=== PATIENT | male | born 1925 | race Caucasian/White ===

== ENCOUNTER 2016-03-28 09:59 | Emergency (ER) | payer MEDICARE, OTHER ==
[2016-03-28 10:17] LABS: #Lymphocytes 8.9 thou/uL (1.20-3.40); #Neutrophils 4.5 thou/uL (1.40-6.50); %Basophils 1.2 % (0.0-1.0); %Eosinophils 0.2 % (0.0-10.0); %Lymphocytes 63.1 % (21.0-51.0); %Monocytes 3.4 % (0.0-10.0); %Neutrophils 32.1 % (42.0-75.0); Hemoglobin 11.2 g/dL (14.0-18.0); Mean Corpuscular HGB CONC 32.7 g/dL (32.0-36.0); Mean Platelet Volume 10.3 fL (7.4-10.4); Platelet Count 97 thou/uL (130-400); RBC Distribution Width 13.7 % (11.5-14.5); Red Blood Cell (RBC) Count 3.38 mill/uL (4.70-6.10)
[2016-03-28 10:18] LABS: #Basophils 0.2 thou/uL (0.0-0.2); #Monocytes 0.5 thou/uL (0.11-0.59)
[2016-03-28 10:19] LABS: PLT Morphology Comment Appears Decreased
[2016-03-28 10:20] LABS: INR-International Normal Ratio 2.4; PTT 34.9 SEC (22.9-36.1); Prothrombin Time 26.1 SEC (12.0-14.7)
[2016-03-28 10:32] LABS: ALT (SGPT) 11 U/L (0-55); AST (SGOT) 17 U/L (5-34); Albumin 3.6 g/dL (3.4-4.8); Alkaline Phosphatase 87 U/L (40-150); Anion Gap 20 mmol/L (10-20); BUN (Urea Nitrogen) 19 mg/dL (8.4-25.7); Bilirubin, Total 0.9 mg/dL (0.2-1.2); Calc. Creatinine Clearance 0 mL/min (70-130); Calcium 9.1 mg/dL (7.8-10.44); Carbon Dioxide 16 mmol/L (23-31); Chloride 110 mmol/L (98-107); Estimated GFR-MDRD 49; Globulin 2.7 g/dL (2.4-3.5); Glucose 148 mg/dL (83-110); Potassium 4.4 mmol/L (3.5-5.1); Protein, Total 6.3 g/dL (5.8-8.1); Sodium 142 mmol/L (136-145)
[2016-03-28 10:34] LABS: CKMB 1.7 ng/mL (0-6.6)
--- NOTE | 2016-03-28 11:14 | CT ---
NONCONTRAST CT OF THE BRAIN: INDICATION: Altered mental status with possible stroke. COMPARISON: Prior exam dated 12/29/15. FINDINGS: No acute infarct, hemorrhage, or hydrocephalus is present. There is stable encephalomalacia involvi ng the posterior right insular cortex as well as the right temporal lobe. There is diffuse cerebral and cerebellar atrophy. There is mild chronic small-vessel white matter ischemic change. Septum p ellucidum and third ventricle are midline. There is prominent mucosal thickening within the right m axillary sinus which is similar. Mastoid air cells are clear. The skull is intact. IMPRESSION: 1. No acute intracranial abnormality. 2. Stable chronic ischemic change. 3. Stable paranasal sinus disease. POS: EDMUND
[2016-03-28] MEDS ORDERED: Aspirin 300 MG Suppository ONE (11:30)
[2016-03-28 11:34] LABS: Bilirubin Negative (Negative); Blood, Urine Moderate (Negative); Clarity Clear (Clear); Glucose, Urine (Dipstick) Negative (Negative); Leukocyte Negative (Negative); Nitrite Negative (Negative); Protein, Urine (Dipstick) 100 mg/dL (Neg-Trace); Specific Gravity, Urine 1.025 (1.005-1.030); pH, Urine 5.5 (5.0-9.0)
[2016-03-28 11:49] LABS: WBC/HPF 0-3 HPF (0-3)
[2016-03-28 11:50] LABS: Bacteria/HPF 1+ HPF (None Seen)
[2016-03-28 11:59] LABS: Lactic Acid 2.2 mmol/L (0.5-2.2)
[2016-03-28] MEDS ORDERED: cefTRIAXone\\ROCEPHIN 1 GM VIAL ONE (12:02)
[2016-03-28] MEDS ORDERED: Sodium Chloride 0.9% 100 ML ONE (12:02)
--- NOTE | 2016-03-28 12:06 | RAD ---
UPRIGHT PORTABLE CHEST 1 VIEW: HISTORY: An 89-year-old male with leukocytosis. COMPARISON: 12/29/15. FINDINGS: Cardiomegaly with left ICD. Postop midline sternotomy. Bilateral vascular congestion with minimal interstitial changes progressive from prior study. IMPRESSION: Cardiomegaly with bilateral vascular congestion and mild interstitial edema changes showing some wor sening when compared to the 12/29/15 study. No confluent pneumonia or other overt new process. POS: LOUISA
--- NOTE | 2016-03-28 13:02 | ERRECORD ---
[facility] EMERGENCY RECORD HPI NEUROLOGICAL DEFICIT (10:07 SHAN) CHIEF COMPLAINT: Patient presents for evaluation of Adult dementia patient, dnr, from prison. They stated to ems that they thought he had had a seizure, then was found breathing but not responsive; on arrival here can move all extremeties. Appears confused but by hx this is chronic. HISTORIAN: Additional history obtained from EMS. LOCATION: No localizing symptoms. SEVERITY: Maximum severity of symptoms moderate, Currently symptoms are mild. TIME COURSE: Symptoms are improving. ROS (10:11 SHAN) CONSTITUTIONAL: Negative constitutional review of systems, Historian denies chills, denies fever. EYES: Negative eye review of systems. ENT: Negative ears, nose, throat review of systems. CARDIOVASCULAR: Negative cardiovascular review of systems, Historian denies chest pain, denies palpitations. RESPIRATORY: Negative respiratory review of systems, Historian denies cough, denies shortness of breath. GI: Negative gastrointestinal review of systems, Historian denies abdominal pain, denies constipation, denies diarrhea. MUSCULOSKELETAL: Negative musculoskeletal review of systems. SKIN: Negative skin review of systems. NEUROLOGIC: Historian reports confusion, dementia obvious; but appearance chronic. ENDOCRINE: Negative endocrine review of systems. HEMO/LYMPHATIC: Normal hematologic/lymphatic system review. PSYCHIATRIC: Negative psychiatric review of systems. NOTES: All other ROS is negative except as listed in HPI. PAST MEDICAL HISTORY MEDICAL HISTORY: Flu vaccine not up to date, Tetanus not up to date, Pneumococcal vaccine not up to date, Past medical history includes neurological disease, dementia, Notes: HTN CHF, CHRONIC RENAL INSUFFICIENCY, PACEMAKER WITH AICD, HX AFIB, DEMENTIA,. ALTERED MENTAL STATUS, 03/28/16. (10:50 ER) MALE SURGICAL HISTORY: UNKOWN. (10:50 ER) SOCIAL HISTORY: Social History includes per ems, Patient denies alcohol use, Patient denies drug use, Patient has no smoking history.03/28/16. (10:50 ER) FAMILY HISTORY: Unknown family histroy. (10:50 ER) NOTES: I have reviewed and agree with the PMH/PSxH/FamHx/SocHx obtained by the nurse. (10:11 SHAN) KNOWN ALLERGIES Cipro tablet &a-1R&a+25V*p+0X*b2533A*c202B*c15G*c2P*p-0X&a-25V&a+1R Name: Cj Landry : 1925 M89 MedRec: [id number] AcctNum: [id number] Prepared: SatMar 28, 2016 14:31 by Interface Page 1 of 5 pMD [facility] EMERGENCY RECORD CURRENT MEDICATIONS Lasix: TABLET : Strength - 40 mg : ORAL Patient Dose: 1 tab(s) Oral once a day. (10:57 ER) famotidine: TABLET : Strength - 20 mg : ORAL Patient Dose: 1 tab(s) Oral once a day. (10:57 ER) tamsulosin: CAPSULE, EXT RELEASE 24 HR : Strength - 0.4 mg : ORAL Patient Dose: 1 tab(s) Oral once a day. (10:57 ER) aspirin: TABLET, CHEWABLE : Strength - 81 mg : ORAL Patient Dose: 1 tab(s) Oral once a day. (10:57 ER) carvedilol: TABLET : Strength - 6.25 mg : ORAL Patient Dose: 1 tab(s) Oral 2 times a day (before meals). (10:57 ER) lisinopril: TABLET : Strength - 2.5 mg : ORAL Patient Dose: 1 tab(s) Oral once a day. (10:57 ER) Calcium Citrate + D: TABLET : Strength - 315 mg-200 unit : ORAL Patient Dose: 1 tab(s) Oral 2 times a day. (10:57 ER) warfarin: TABLET : Strength - 5 mg : ORAL Patient Dose: 1 tab(s) Oral once a day. (10:57 ER) potassium chloride: TABLET, EXTENDED RELEASE : Strength - 20 mEq : ORAL Patient Dose: 1 cap(s) Oral once a day. (10:57 ER) Myrbetriq: TABLET, EXTENDED RELEASE 24 HR : Strength - 50 mg : ORAL Patient Dose: 1 tab(s) Oral once a day. (10:57 ER) Proscar: TABLET : Strength - 5 mg : ORAL Patient Dose: once a day. (10:57 ER) digoxin: TABLET : Strength - 125 mcg : ORAL Patient Dose: once a day. (10:57 ER) DuoNeb: AMPUL FOR NEBULIZATION (ML) : Strength - 0.5 mg-3 mg (2.5 mg base)/3 mL : INHALATION Patient Dose: every 6 hours PRN. (10:57 ER) Myrbetriq: TABLET, EXTENDED RELEASE 24 HR : Strength - 25 mg : ORAL Patient Dose: 1 tab(s) Oral once a day. (11:05 ER) PriLOSEC: CAPSULE,DELAYED RELEASE (ENTERIC COATED) : Strength - 40 mg : ORAL Patient Dose: 1 tab(s) Oral once a day. (11:06 ER) VITAL SIGNS &a-1R&a+25V*p+0X*s1884E*c202B*c15G*c2P*p-0X&a-25V&a+1R Name: Cj Landry : 1925 M89 MedRec: [id number] AcctNum: [id number] Prepared: SatMar 28, 2016 14:31 by Interface Page 2 of 5 pMD [facility] EMERGENCY RECORD VITAL SIGNS: BP: 159/79, Time: 03/28/2016 10:01. (10:01 AWAT) BP: 159/79, Pulse: 80, Resp: 20, Pain: 0, O2 sat: 91 on Room Air, Time: 03/28/2016 10:01. (10:01 ER) BP: 152/73, Pulse: 80, Resp: 20, Pain: 0, O2 sat: 91 on Room Air, Time: 03/28/2016 10:15. (10:15 ER) BP: 142/72, Pulse: 80, Resp: 20, Pain: 0, O2 sat: 91 on Room Air, Time: 03/28/2016 12:00. (12:00 ER) BP: 142/74, Pulse: 79, Resp: 20, Pain: 0, O2 sat: 89 on Room Air, Time: 03/28/2016 10:30. (10:30 ER) BP: 143/75, Pulse: 81, Resp: 20, Pain: 0, O2 sat: 91 on Room Air, Time: 03/28/2016 11:00. (11:00 ER) Temp: 97.5 (Tympanic), Time: 03/28/2016 10:05. (10:05 ER) BP: 150/78, Pulse: 79, Resp: 20, Pain: 0, O2 sat: 93 on Room Air, Time: 03/28/2016 11:30. (11:30 ER) BP: 153/75, Pulse: 79, Resp: 20, Pain: 0, O2 sat: 91 on Room Air, Time: 03/28/2016 12:15. (12:15 ER) BP: 145/76, Pulse: 81, Resp: 18, Pain: 0, O2 sat: 91 on Room Air, Time: 03/28/2016 13:00. (13:00 ER) BP: 154/81, Pulse: 85, Resp: 18, Pain: 0, O2 sat: 91 on Room Air, Time: 03/28/2016 12:30. (12:30 ER) BP: 144/73, Pulse: 80, Resp: 18, Temp: 97.1 (Tympanic), Pain: 0, O2 sat: 94 on 2L Oxygen, Time: 03/28/2016 13:45. (13:45 ER) BP: 150/74, Pulse: 84, Resp: 18, Pain: 0, O2 sat: 94 on 2L Oxygen, Time: 03/28/2016 13:30. (13:30 ER) PHYSICAL EXAM (10:11 SHAN) CONSTITUTIONAL: Vital signs reviewed, Patient appears non toxic, Patient alert and oriented to person, place and time, Pt is in no apparent distress. HEAD: Head exam included findings of head atraumatic, normocephalic. EYES: Eye exam included findings of eyelids normal to inspection, Pupils equally round and reactive to light, Extraocular muscles intact. ENT: ENT exam normal, Nose exam normal, no nasal deformity, no bleeding from nares, Pharynx exam normal, Mouth exam normal, mucous membranes moist. NECK: Neck exam included findings of normal range of motion, Trachea midline. RESPIRATORY CHEST: Respiratory and chest exam normal, Breath sounds clear, No wheezing, No rales, Chest exam included findings of chest movement symmetrical, Chest expansion equal. CARDIOVASCULAR: Cardiovascular assessment normal, Cardiovascular exam included findings of heart rate regular rate and rhythm, Heart sounds normal, has pacemaker, defibrillator. ABDOMEN MALE: Abdominal exam included findings of abdomen nontender, Bowel sounds normal, no mass, no pulsatile masses, no peritoneal signs, no rigidity, no guarding, no rebound. BACK: Back exam included findings of normal inspection, range of motion normal, no costovertebral angle tenderness. &a-1R&a+25V*p+0X*f4088M*c202B*c15G*c2P*p-0X&a-25V&a+1R Name: Cj Landry : 1925 M89 MedRec: [id number] AcctNum: [id number] Prepared: SatMar 28, 2016 14:31 by Interface Page 3 of 5 pMD [facility] EMERGENCY RECORD UPPER EXTREMITY: Upper extremity exam included findings of inspection normal, Range of motion normal. LOWER EXTREMITY: Lower extremity exam included findings of inspection normal, Range of motion normal. NEURO: Confused, chronic by history. no focal motor deficits, no focal sensory deficits. SKIN: Skin exam included findings of skin warm, dry, and normal in color, left face is reddened; similar to pressure effect. actinics. LYMPHATIC: Lymphatic exam normal. PSYCHIATRIC: Psychiatric exam included findings of patient oriented to person place and time, Normal affect. EKG INTERPRETATION (10:53 SHAN) 12 LEAD EKG INTERPRETATION: 12 lead EKG interpreted by Emergency Department Physician at time of study, rate 80; paced rhythm; no obvious acute event. MEDICATION ADMINISTRATION SUMMARY Drug Name: Rocephin intravenous, Dose Ordered: 1 g, Route: IV Push, Status: Given, Time: 12:10 03/28/2016, Drug Name: *aspirin 300 mg rectal supp., Dose Ordered: * , Route: Rectal, Status: Given, Time: 11:36 03/28/2016, *Additional information available in notes, Detailed record available in Medication Service section. DOCTOR NOTES TEXT: snf note of possible seizure; found unresponsive; hx given was that can normally walk and responsive, but with alzheimers and is dnr. Is anticoagulated. Troponin I positive; but unclear of source. Will add aspirin (inr up already). (10:41 SHAN) Later prison data obtained by rn; patient had been dressed earlier in day; was found asleep (clothed) by rn. Normally would talk, but not today. Daughter is listed as decision maker. Last normal time is unknown. 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 (11:06 SHAN) Daughter is giving permission for transfer, positive troponin and can not rule out onset unknown possible non hemorrhagic cva in patient with prior valve replacement. (11:43 SHAN) Chest x-ray with cardiomegaly and some vascular congestion; only slightly worse than prior. (11:55 SHAN) Discussed each anomaly, Dr. Quinn at [facility] accepting. (12:52 SHAN) PATIENT PLAN: The patient requires a transfer and will be transferred. (11:43 SHAN) DATA REVIEWED: Lab data reviewed, Xray data reviewed, Reviewed EKG. (11:06 SHAN) Lab data reviewed, Xray data reviewed, Reviewed EKG. 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 PRESCRIPTION No recorded prescriptions DISPOSITION PATIENT: Disposition Type: Transfer, Disposition: Transfer to [facility]. (11:50 SHAN) Disposition: [facility]. (13:02 AWAT) Patient left the department. (14:05 ER) Granados: AWAT=LYRIC Antonio, Marcelo ER=Marie Chew=MD Fara, Jamir &a-1R&a+25V*p+0X*h0805M*c202B*c15G*c2P*p-0X&a-25V&a+1R Name: Garo Landrykacey Warner : 1925 M89 MedRec: [id number] AcctNum: [id number] Prepared: SatMar 28, 2016 14:31 by Interface Page 5 of 5 pMD [facility]
--- NOTE | 2016-03-28 13:08 | PICIS ---
[facility] EMERGENCY RECORD COMMUNICATIONS COMMUNICATIONS: Notes: TRANSFER PROCESS STARTED NOW. PT'S DAUGHTER GAVE VERBAL CONSENT TO TRANSFER HER DAD TO THE NEAREST ACCEPTING [facility] F[facility]. [facility] CALLED & NOTIFIED OF NEED TO TRANSFER... (11:46 AWAT) Notes: CALLBACK RECIEVED FROM [place] WITH [facility]. HE GAVE AD APPROVAL OF ROBERT AUGUST AT [address] [address] IN [place]. [address] [facility] ACCEPTED PT. PT WILL BE A DIRECT ADMIT TO ROOM 419. (13:11 AWAT) TRIAGE (10:01 AWAT) TRIAGE NOTES: [place] from [place] (10:01 AWAT) PATIENT: NAME: Cj Landry, AGE: 89, GENDER: male, : [id number], TIME OF GREET: SatMar 28, 2016 10:00, PREFERRED LANGUAGE: Setswana, ETHNICITY: Not or , ECODE BILLING MAP: [facility], SSN: [id number], Zip Code: [address], PHONE: , , , PERSON ID: [id number]. (10:01 AWAT) KG WEIGHT: 79.4 (est.). (11:30 ER) COMPLAINT: POSS STROKE. (10:01 AWAT) ADMISSION: URGENCY: 3 Urgent, ADMISSION SOURCE: Half-Way, TRANSPORT: AMBULANCE - [facility], BED: ED -01. (10:01 AWAT) IMMUNIZATIONS: Notes: UNKOWN ON IMMUNIZATIONS. (10:50 ER) SIRS SCORING: Heart Rate 55-109 (0), Temp range 96.8-101.1 (0), respiratory rate 12-24 (0), Mental status altered: yes (1), Total SIRS Score 1. (10:50 ER) TRIAGE SCREENING: Patient denies suicidal ideation, Patient denies presence of domestic violence. (10:50 ER) PROVIDERS: TRIAGE NURSE: Marcelo Antonio RN. (10:01 AWAT) VITAL SIGNS: BP 159/79, Time 03/28/2016 10:01. (10:01 AWAT) ACTIVATE PROTOCOL: Stroke protocol activated from Ambulance call. (10:50 ER) KNOWN ALLERGIES Cipro tablet CURRENT MEDICATIONS Lasix: TABLET : Strength - 40 mg : ORAL Patient Dose: 1 tab(s) Oral once a day. (10:57 ER) famotidine: TABLET : Strength - 20 mg : ORAL Patient Dose: 1 tab(s) Oral once a day. (10:57 ER) tamsulosin: CAPSULE, EXT RELEASE 24 HR : Strength - 0.4 mg : ORAL Patient Dose: 1 tab(s) Oral once a day. (10:57 ER) aspirin: TABLET, CHEWABLE : Strength - 81 mg : ORAL Patient Dose: 1 tab(s) Oral once a day. (10:57 ER) carvedilol: &a-1R&a+25V*p+0X*b8079C*c202B*c15G*c2P*p-0X&a-25V&a+1R Name: Cj Landry : 1925 M89 MedRec: [id number] AcctNum: [id number] Prepared: SatMar 28, 2016 14:37 by Interface Page 1 of 15 pMD [facility] EMERGENCY RECORD TABLET : Strength - 6.25 mg : ORAL Patient Dose: 1 tab(s) Oral 2 times a day (before meals). (10:57 ER) lisinopril: TABLET : Strength - 2.5 mg : ORAL Patient Dose: 1 tab(s) Oral once a day. (10:57 ER) Calcium Citrate + D: TABLET : Strength - 315 mg-200 unit : ORAL Patient Dose: 1 tab(s) Oral 2 times a day. (10:57 ER) warfarin: TABLET : Strength - 5 mg : ORAL Patient Dose: 1 tab(s) Oral once a day. (10:57 ER) potassium chloride: TABLET, EXTENDED RELEASE : Strength - 20 mEq : ORAL Patient Dose: 1 cap(s) Oral once a day. (10:57 ER) Myrbetriq: TABLET, EXTENDED RELEASE 24 HR : Strength - 50 mg : ORAL Patient Dose: 1 tab(s) Oral once a day. (10:57 ER) Proscar: TABLET : Strength - 5 mg : ORAL Patient Dose: once a day. (10:57 ER) digoxin: TABLET : Strength - 125 mcg : ORAL Patient Dose: once a day. (10:57 ER) DuoNeb: AMPUL FOR NEBULIZATION (ML) : Strength - 0.5 mg-3 mg (2.5 mg base)/3 mL : INHALATION Patient Dose: every 6 hours PRN. (10:57 ER) Myrbetriq: TABLET, EXTENDED RELEASE 24 HR : Strength - 25 mg : ORAL Patient Dose: 1 tab(s) Oral once a day. (11:05 ER) PriLOSEC: CAPSULE,DELAYED RELEASE (ENTERIC COATED) : Strength - 40 mg : ORAL Patient Dose: 1 tab(s) Oral once a day. (11:06 ER) VITAL SIGNS VITAL SIGNS: BP: 159/79, Time: 03/28/2016 10:01. (10:01 AWAT) BP: 159/79, Pulse: 80, Resp: 20, Pain: 0, O2 sat: 91 on Room Air, Time: 03/28/2016 10:01. (10:01 ER) BP: 152/73, Pulse: 80, Resp: 20, Pain: 0, O2 sat: 91 on Room Air, Time: 03/28/2016 10:15. (10:15 ER) BP: 142/72, Pulse: 80, Resp: 20, Pain: 0, O2 sat: 91 on Room Air, Time: 03/28/2016 12:00. (12:00 ER) BP: 142/74, Pulse: 79, Resp: 20, Pain: 0, O2 sat: 89 on Room Air, Time: 03/28/2016 10:30. (10:30 ER) BP: 143/75, Pulse: 81, Resp: 20, Pain: 0, O2 sat: 91 on Room Air, Time: 03/28/2016 11:00. (11:00 ER) Temp: 97.5 (Tympanic), Time: 03/28/2016 10:05. (10:05 ER) BP: 150/78, Pulse: 79, Resp: 20, Pain: 0, O2 sat: 93 on Room Air, Time: 03/28/2016 11:30. (11:30 ER) &a-1R&a+25V*p+0X*o6463R*c202B*c15G*c2P*p-0X&a-25V&a+1R Name: Cj Landry : 1925 M89 MedRec: [id number] AcctNum: [id number] Prepared: SatMar 28, 2016 14:37 by Interface Page 2 of 15 pMD [facility] EMERGENCY RECORD BP: 153/75, Pulse: 79, Resp: 20, Pain: 0, O2 sat: 91 on Room Air, Time: 03/28/2016 12:15. (12:15 ER) BP: 145/76, Pulse: 81, Resp: 18, Pain: 0, O2 sat: 91 on Room Air, Time: 03/28/2016 13:00. (13:00 ER) BP: 154/81, Pulse: 85, Resp: 18, Pain: 0, O2 sat: 91 on Room Air, Time: 03/28/2016 12:30. (12:30 ER) BP: 144/73, Pulse: 80, Resp: 18, Temp: 97.1 (Tympanic), Pain: 0, O2 sat: 94 on 2L Oxygen, Time: 03/28/2016 13:45. (13:45 ER) BP: 150/74, Pulse: 84, Resp: 18, Pain: 0, O2 sat: 94 on 2L Oxygen, Time: 03/28/2016 13:30. (13:30 ER) NURSING ASSESSMENT: CVA ASSESSMENT TOOL CONSTITUTIONAL: Patient arrives, via [facility], Unsteady gait, Assistance to cart, History obtained from, prison record, Patient appears comfortable, Patient cooperative, Patient alert, Patient is, confused, Skin warm, Skin dry, Patient complains of ALTERED MENTAL STATUS. (10:19 ER) PAIN: UNABLE TO ASSESS. (10:19 ER) CVA ASSESSMENT: CVA assessment findings include onset of symptoms were, PER [facility], CHRISTOPHER LYNDSAY, UNSURE OF LAST SEEN NORMAL, STATES PT WAS SLEEPING, WOKE HIM UP AT 7AM, AND PT WAS CONFUSED. (10:19 ER) Speech, incoherent, Hand grasps unequal, Foot press unequal, Upper extremity motor strength strong, Lower extremity motor strength strong, no facial numbness, no facial droop, no numbness to upper extremities, no numbness to lower extremities, Neel coma scale:, Eye opening: (4) - Spontaneous, Verbal: (4) - Confused/disoriented, Motor: (6) - Obeys commands/Spontaneous, GCS Total: 14. (13:50 ER) NIHSS: CVA assessment findings: Level of consciousness: alert, keenly responsive (0), Questions: answers neither question correctly (2), Commands: performs neither task correctly (2), Best gaze: forced deviation or total gaze paresis (2), Visual: no visual loss (0), Facial palsy: normal symmetrical movement (0), Motor Left Arm: no drift, arm stays 90/45 degrees for full 10 seconds (0), Motor Right Arm: no drift, arm stays 90/45 degrees for full 10 seconds (0), Motor left leg: no effort against gravity, leg falls to bed or support (3), Motor right leg: no effort against gravity, leg falls to bed or support (3), Limb ataxia absent (0), Sensory: normal, no sensory loss (0), Best language: no aphasia; normal (0), Dysarthria: normal (0), Extinction and Inattention: normal (0), Total score 12. (10:19 ER) ACUTE STROKE PROTOCOL: Onset of symptoms is unknown, NIHSS score 12, Stroke team initiated at 0957, Stroke team response at 1000, Inclusion criteria: Patient's age 18 years or older, Time of symptom onset (when patient was last seen normal) Not well established as less than 180 minutes (3hours) before treatment would begin, Currently taking coumadin with PT > 15(PT and &a-1R&a+25V*p+0X*v0747I*c202B*c15G*c2P*p-0X&a-25V&a+1R Name: Cj Landry : 1925 M89 MedRec: [id number] AcctNum: [id number] Prepared: SatMar 28, 2016 14:37 by Interface Page 3 of 15 pMD [facility] EMERGENCY RECORD INR required), Notes: NIHSS, INCOMPLETE, DUE TO PT UNABLE TO FOLLOW COMMANDS, UNSURE IF PT IS [place], DOES RESPOND WITH "WHAT". (10:19 ER) SWALLOWING EVALUATION: Positive for decrease level of alertness, Patient not cleared for swallowing evaluation; positive responses, Swallowing evaluation approved by Dr. CHAUDHARI, Following administration of 3 ounces of water by a cup, patient failed swallowing evaluation by exhibiting the following signs or symptoms of aspiration:, Notes: UNABLE TO ASSESS SWALLOW STUDY, DUE TO PT UNABLE TO FOLLOW COMMANDS, AND COUGHING AND SPITTING UP SPUTUM, ASPIRIN ORDERED BY DOCTOR GIVEN RECTAL. (10:19 ER) MODIFIED PARISH SCALE: Modified [place] Scale findings: Patient with moderately severe disability; unable to walk without assistance and unable to attend to own bodily needs without assistance (4), Notes: PER [facility], PT AMBULATES TO RESTROOM AND TO WC. (10:19 ER) NOTES: Notes: UNABLE TO DO NIHSS, DUE PT ONLY FOLLOWS SIMPLE COMMANDS TO NONE AT TIMES. (13:50 ER) SAFETY: Side rails up, Cart/Stretcher in lowest position, Call light within reach, Hospital ID band on, Patient in view of the nursing station. (10:19 ER) NURSING ASSESSMENT: FALL RISK (11:26 ER) FALL RISK: Use of level of consciousness altering agents with mentation or cognitive changes (3), Sensory deficits (1), Impaired mobility (3), Neurologic diagnosis (3), Elimination problems (3), Confusion (3), Total score 16, Fall risk. HENDRICH II FALL RISK: Hendrich II Fall Risk assessment findings include patient confused, disoriented or impulsive(4), altered elimination(1), male(1), Total score 6, Notes: SIDE RAILS UP, VIEW OF NS STATION, Score greater than 5. Patient is at high risk for fall. Fall risk precautions initiated. NURSING ASSESSMENT: NEURO GCS: (6) Obeying command:, (3) Inappropriate speech:, (4) Spontaneous eye opening., Result: 13. (10:01 ER) (6) Obeying command:, (4) Confused conversation:, (4) Spontaneous eye opening., Result: 14. (12:19 ER) NIHSS: CVA assessment findings: Level of consciousness: alert, keenly responsive (0), Questions: answers neither question correctly (2), Commands: performs neither task correctly (2), Best gaze: forced deviation or total gaze paresis (2), Visual: no visual loss (0), Facial palsy: normal symmetrical movement (0), Motor Left Arm: no drift, arm stays 90/45 degrees for full 10 seconds (0), Motor Right Arm: no drift, arm stays 90/45 degrees for full 10 seconds (0), Motor left leg: no effort against gravity, leg falls to bed or support (3), Motor &a-1R&a+25V*p+0X*o2675S*c202B*c15G*c2P*p-0X&a-25V&a+1R Name: Cj Landry : 1925 M89 MedRec: [id number] AcctNum: [id number] Prepared: SatMar 28, 2016 14:37 by Interface Page 4 of 15 pMD [facility] EMERGENCY RECORD right leg: no effort against gravity, leg falls to bed or support (3), Limb ataxia absent (0), Sensory: normal, no sensory loss (0), Total score 12. (10:19 ER) CONSTITUTIONAL: Patient arrives, via [facility] Services, History obtained from, prison record, Patient appears comfortable, Patient cooperative, Patient alert, Patient is, Skin warm, Skin dry, Skin normal in color, Mucous membranes pink, Mucous membranes moist, Patient complains of altered mental status,per ns home, ?sz, unresponsive,. (10:01 ER) NEURO: Unable to close eyes, bilaterally, Face symmetrical, Speech, garbled. (10:19 ER) NURSING ASSESSMENT: SKIN (11:26 ER) SKIN: Skin assessment findings include skin warm, Skin dry, Skin normal in color, Notes: NO SKIN BREAKDOWN, PT HAS REDNESS TO LEFT SIDE OF FACE. NURSING PROCEDURE: BEDSIDE SIRS TESTING (10:53 ER) SCORES: Heart Rate 55-109 (0), Temp range 96.8-101.1 (0), respiratory rate 12-24 (0), Latest WBC 3-14.9 (0), Mental status altered: yes (1), Total SIRS Score 1. NURSING PROCEDURE: BEDSIDE TESTING (10:16 ER) GLUCOSE: Glucose testing indicated for mental status changes, Venous blood sample, Result (mg/dl) 131. NURSING PROCEDURE: TELEPHONE COLLECTOR (10:17 ER) TELEPHONE COLLECTOR: Cardiac monitoring indicated for mental status changes, Patient placed on monitor tech, Heart rate: 80, showing paced rhythm, Patient placed on non-invasive blood pressure monitor, Patient placed on continuous pulse oximetry. NURSING PROCEDURE: EKG CHART (10:43 ER) EK lead EKG performed on the left chest, done by LUIS GUNTER. FOLLOW-UP: After procedure, EKG for interpretation given to Dr. DR CHAUDHARI. SAFETY: Side rails up, Cart/Stretcher in lowest position, Call light within reach, Hospital ID band on. NURSING PROCEDURE: IV (10:17 ER) IV SITE 1: IV established, to the left antecubital, using an 18 gauge catheter, Notes: saline lock by ems. NURSING PROCEDURE: NURSE NOTES NURSES NOTES: Notes: NIHSS, UNABLE TO COMPLETE, PT UNABLE TO FOLLOW COMMANDS, ALERT/OX1, DR PAOLO. (10:52 ER) Notes: LAB AT BEDSIDE DRAWING BLOOD CULTURES. (10:53 ER) Notes: CALLED THE [facility], SPOKE WITH CHRISTOPHER LYNDSAY, PER CHRISTOPHER WENT INTO PTS ROOM AT 7AM, PT WAS SLEEPING, WOKE PT UP. PT WAS CONFUSED, PER CHRISTOPHER PT WAS DRESSED BY DATA CAPTURE CLERK AT 6AM, NO REPORT FROM NIGHT &a-1R&a+25V*p+0X*j0432T*c202B*c15G*c2P*p-0X&a-25V&a+1R Name: Cj Landry : 1925 M89 MedRec: [id number] AcctNum: [id number] Prepared: SatMar 28, 2016 14:37 by Interface Page 5 of 15 pMD [facility] EMERGENCY RECORD SHIFT OF PTS ALTERED MENTAL STATUS. PER CHRISTOPHER, PT NORMAL IS, HE IS USUALLY SITTING AT THE SIDE OF BED, DRESSED, ASKING WHEN IS BREAKFAST, AND AMBUL;ATES TO RESTROOM THEN TO WC. (11:08 ER) Notes: DR REGALADO ON THE PHONE WITH DAUGHTER. (11:39 ER) Notes: BLOOD CULTURES X 2 DONE. (12:00 ER) Notes: PT RESTING, NO COMPLAINTS, NO CHANGE IN NIHSS, OR NEURO STATUS. ROCEPHIN INFUSING. (12:00 ER) Notes: PT RESTING, NO CHANGE IN NEURO STATUS, WAITING ON TRANSFER TO [facility]. (13:00 ER) Notes: REPORT TO ALYSA GUNTER AT [facility]. (13:50 ER) Notes: CALLED AT CATHERINE GAMALIEL, PT'S DAUGHTER OF TRANSFER AND ROOM NUMBER. 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 SAFETY: Side rails up, Cart/Stretcher in lowest position, Call light within reach, Hospital ID band on. NURSING PROCEDURE: TRANSPORT TO TESTS TRANSPORT TO TESTS: Patient transported to CT scan, via cart, Accompanied by x-ray marine services technician. (10:02 ER) FOLLOW-UP: After procedure, patient returned to emergency department. (10:10 ER) NURSING PROCEDURE: URINE COLLECTION (11:23 ER) PATIENT IDENTIFIER: Patient actively involved in identification process, Patient's identity verified by hospital ID niki. URINE COLLECTION MALE: Urine collection indicated for UNABLE TO FOLLOW COMMANDS, Urine collected by straight cath, using a 14 fr catheter, in one attempt, output amount (mL) 20ML, urine andres in color, and clear. ORDER DETAILS Order Name: BLOOD GLUCOSE MONITOR, Status: Done, Time: 10:17 03/28/2016, User: ER, - Ordered for: MD Chaudhari Stanley, - Entered by: MD Chaudhari Stanley - [facility] Mar 28, 2016 10:06, - Quantity: 1, Order Name: TELEPHONE COLLECTOR ED, Status: Done, Time: 10:25 03/28/2016, User: ER, - Ordered for: MD Chaudhari Stanley, - Entered by: MD Chaudhari Stanley - [facility] Mar 28, 2016 10:06, &a-1R&a+25V*p+0X*a4623V*c202B*c15G*c2P*p-0X&a-25V&a+1R Name: Cj Landry : 1925 M89 MedRec: [id number] AcctNum: [id number] Prepared: SatMar 28, 2016 14:37 by Interface Page 6 of 15 pMD [facility] EMERGENCY RECORD - Quantity: 1, Order Name: Cardiac Profile w/CKMB & Troponin - I, Status: Active, Time: 10:06 03/28/2016, User: SHAN, - Ordered for: MD Chaudhari Stanley, - Entered by: MD Chaudhari Stanley - [facility] Mar 28, 2016 10:06, - Quantity: 1, Order Name: CBC with Differential, Status: Active, Time: 10:06 03/28/2016, User: NAIN, - Ordered for: MD Chaudhari Stanley, - Entered by: MD Chaudhari Stanley - [facility] Mar 28, 2016 10:06, - Quantity: 1, Order Name: Comprehensive Metabolic Panel, Status: Active, Time: 10:06 03/28/2016, User: NAIN, - Ordered for: MD Chaudhari Stanley, - Entered by: MD Chaudhari Stanley - [facility] Mar 28, 2016 10:06, - Quantity: 1, Order Name: CT Brain WO Con, Status: Done, Time: 12:26 03/28/2016, User: System, - Ordered for: MD Chaudhari Stanley, - Entered by: MD Chaudhari Stanley - [facility] Mar 28, 2016 10:00, - Quantity: 1, Order Name: CT Brain WO Con, Status: Canceled, Time: 10:14 03/28/2016, User: System, - Ordered for: MD Chaudhari Stanley, - Entered by: MD Chaudhari Stanley - [facility] Mar 28, 2016 10:06, - Quantity: 1, Order Name: Culture, Blood, Status: Active, Time: 10:29 03/28/2016, User: NAIN, - Ordered for: MD Chaudhari Stanley, - Entered by: MD Chaudhari Stanley - [facility] Mar 28, 2016 10:29, - Quantity: 1, Order Name: Culture, Urine, Status: Active, Time: 10:29 03/28/2016, User: NAIN, - Ordered for: MD Chaudhari Stanley, - Entered by: MD Chaudhari Stanley - [facility] Mar 28, 2016 10:29, - Quantity: 1, Order Name: EKG 12 Lead in Emergency Room, Status: Active, Time: 10:06 03/28/2016, User: NAIN, - Ordered for: MD Chaudhari Stanley, - Entered by: MD Chaudhari Stanley - [facility] Mar 28, 2016 10:06, - Quantity: 1, Order Name: Lactic Acid, Status: Active, Time: 11:35 03/28/2016, User: NAIN, - Ordered for: MD Chaudhari Stanley, - Entered by: MD Chaudhari Stanley - [facility] Mar 28, 2016 11:35, - Quantity: 1, Order Name: Protime with INR, Status: Active, Time: 10:06 03/28/2016, User: NAIN, - Ordered for: MD Chaudhari Stanley, - Entered by: MD Chaudhari Stanley - [facility] Mar 28, 2016 10:06, &a-1R&a+25V*p+0X*x4348G*c202B*c15G*c2P*p-0X&a-25V&a+1R Name: Cj Landry : 1925 M89 MedRec: [id number] AcctNum: [id number] Prepared: SatMar 28, 2016 14:37 by Interface Page 7 of 15 pMD [facility] EMERGENCY RECORD - Quantity: 1, Order Name: PTT, Status: Active, Time: 10:06 03/28/2016, User: NAIN, - Ordered for: MD Chaudhari Stanley, - Entered by: MD Chaudhari Stanley - [facility] Mar 28, 2016 10:06, - Quantity: 1, Order Name: SALINE LOCK, Status: Done, Time: 10:17 03/28/2016, User: ER, - Ordered for: MD Chaudhari Stanley, - Entered by: MD Chaudhari Stanley - [facility] Mar 28, 2016 10:06, - Quantity: 1, Order Name: Urinalysis with Microscopic, Status: Active, Time: 10:29 03/28/2016, User: NAIN, - Ordered for: MD Chaudhari Stanley, - Entered by: MD Chaudhari Stanley - [facility] Mar 28, 2016 10:29, - Quantity: 1, Order Name: XR Chest 1 View Portable, Status: Active, Time: 11:26 03/28/2016, User: NAIN, - Ordered for: MD Chaudhari Stanley, - Entered by: MD Chaudhari Stanley - [facility] Mar 28, 2016 11:26, - Quantity: 1. MEDICATION ADMINISTRATION SUMMARY Drug Name: Rocephin intravenous, Dose Ordered: 1 g, Route: IV Push, Status: Given, Time: 12:10 03/28/2016, Drug Name: *aspirin 300 mg rectal supp., Dose Ordered: * , Route: Rectal, Status: Given, Time: 11:36 03/28/2016, *Additional information available in notes, Detailed record available in Medication Service section. MEDICATION SERVICE aspirin 300 mg rectal supp.: Free Text order: aspirin 300 mg rectal supp. : could not reliably swallow po : Rectal Ordered by: Jamir Chaudhari MD Entered by: Jamir Chaudhari MD SatMar 28, 2016 11:33 Documented as given by: Darleen Giordano RN SatMar 28, 2016 11:36 Patient, Medication, Dose, Route and Time verified prior to administration. Amount given: 300 mg, Patient administered medication after instruction by staff on correct technique, Lubricant used for administration, Medication retained after administration, Correct patient, time, route, dose and medication confirmed prior to administration, Patient advised of actions and side-effects prior to administration, Allergies confirmed and medications reviewed prior to administration, Patient in position of comfort, Side rails up, Cart in lowest position. : Follow Up : Response assessment performed, No signs or symptoms of allergic reaction noted. (13:39 ER) Rocephin intravenous: Order: Rocephin intravenous (ceftriaxone sodium) - Dose: 1 g : IV Push &a-1R&a+25V*p+0X*h5697B*c202B*c15G*c2P*p-0X&a-25V&a+1R Name: Cj Landry : 1925 M89 MedRec: [id number] AcctNum: [id number] Prepared: SatMar 28, 2016 14:37 by Interface Page 8 of 15 pMD [facility] EMERGENCY RECORD Schedule: Now Ordered by: Jamir Chaudhari MD Entered by: Jamir Chaudhari MD SatMar 28, 2016 11:31 , Acknowledged by: Darleen Giordano RN SatMar 28, 2016 11:38 Documented as given by: Marie Chew SatMar 28, 2016 12:10 Patient, Medication, Dose, Route and Time verified prior to administration. Amount given: 1 GRAM, IV SITE #1 IVPB or drip, initial infusion, IVPB mixed in: 100ml, Fluid: 0.9NS, Catheter placement confirmed via flush prior to administration, IV site without signs or symptoms of infiltration during medication administration, No swelling during administration, No drainage during administration, IV flushed after administration, Correct patient, time, route, dose and medication confirmed prior to administration, Patient advised of actions and side-effects prior to administration, Allergies confirmed and medications reviewed prior to administration, Patient in position of comfort, Side rails up, Cart in lowest position. : Follow Up : Response assessment performed, No signs or symptoms of allergic reaction noted, _IV SITE #1:_, Medication infusion discontinued, on SatMar 28, 2016 13:10, Total infusion time IV site 1 1 hour, . (13:10 ER) HPI NEUROLOGICAL DEFICIT (10:07 SHAN) CHIEF COMPLAINT: Patient presents for evaluation of Adult dementia patient, dnr, from prison. They stated to ems that they thought he had had a seizure, then was found breathing but not responsive; on arrival here can move all extremeties. Appears confused but by hx this is chronic. HISTORIAN: Additional history obtained from EMS. LOCATION: No localizing symptoms. SEVERITY: Maximum severity of symptoms moderate, Currently symptoms are mild. TIME COURSE: Symptoms are improving. ROS (10:11 [facility]) CONSTITUTIONAL: Negative constitutional review of systems, Historian denies chills, denies fever. EYES: Negative eye review of systems. ENT: Negative ears, nose, throat review of systems. CARDIOVASCULAR: Negative cardiovascular review of systems, Historian denies chest pain, denies palpitations. RESPIRATORY: Negative respiratory review of systems, Historian denies cough, denies shortness of breath. GI: Negative gastrointestinal review of systems, Historian denies abdominal pain, denies constipation, denies diarrhea. MUSCULOSKELETAL: Negative musculoskeletal review of systems. SKIN: Negative skin review of systems. NEUROLOGIC: Historian reports confusion, dementia obvious; but appearance chronic. ENDOCRINE: Negative endocrine review of systems. HEMO/LYMPHATIC: Normal hematologic/lymphatic system review. &a-1R&a+25V*p+0X*o6201K*c202B*c15G*c2P*p-0X&a-25V&a+1R Name: Cj Landry : 1925 M89 MedRec: [id number] AcctNum: [id number] Prepared: SatMar 28, 2016 14:37 by Interface Page 9 of 15 pMD [facility] EMERGENCY RECORD PSYCHIATRIC: Negative psychiatric review of systems. NOTES: All other ROS is negative except as listed in HPI. PAST MEDICAL HISTORY MEDICAL HISTORY: Flu vaccine not up to date, Tetanus not up to date, Pneumococcal vaccine not up to date, Past medical history includes neurological disease, dementia, Notes: HTN CHF, CHRONIC RENAL INSUFFICIENCY, PACEMAKER WITH AICD, HX AFIB, DEMENTIA,. ALTERED MENTAL STATUS, 03/28/16. (10:50 ER) MALE SURGICAL HISTORY: UNKOWN. (10:50 ER) SOCIAL HISTORY: Social History includes per ems, Patient denies alcohol use, Patient denies drug use, Patient has no smoking history.03/28/16. (10:50 ER) FAMILY HISTORY: Unknown family histroy. (10:50 ER) NOTES: I have reviewed and agree with the PMH/PSxH/FamHx/SocHx obtained by the nurse. (10:11 SHAN) PHYSICAL EXAM (10:11 SHAN) CONSTITUTIONAL: Vital signs reviewed, Patient appears non toxic, Patient alert and oriented to person, place and time, Pt is in no apparent distress. HEAD: Head exam included findings of head atraumatic, normocephalic. EYES: Eye exam included findings of eyelids normal to inspection, Pupils equally round and reactive to light, Extraocular muscles intact. ENT: ENT exam normal, Nose exam normal, no nasal deformity, no bleeding from nares, Pharynx exam normal, Mouth exam normal, mucous membranes moist. NECK: Neck exam included findings of normal range of motion, Trachea midline. RESPIRATORY CHEST: Respiratory and chest exam normal, Breath sounds clear, No wheezing, No rales, Chest exam included findings of chest movement symmetrical, Chest expansion equal. CARDIOVASCULAR: Cardiovascular assessment normal, Cardiovascular exam included findings of heart rate regular rate and rhythm, Heart sounds normal, has pacemaker, defibrillator. ABDOMEN MALE: Abdominal exam included findings of abdomen nontender, Bowel sounds normal, no mass, no pulsatile masses, no peritoneal signs, no rigidity, no guarding, no rebound. BACK: Back exam included findings of normal inspection, range of motion normal, no costovertebral angle tenderness. UPPER EXTREMITY: Upper extremity exam included findings of inspection normal, Range of motion normal. LOWER EXTREMITY: Lower extremity exam included findings of inspection normal, Range of motion normal. NEURO: Confused, chronic by history. no focal motor deficits, no focal sensory deficits. &a-1R&a+25V*p+0X*l8345P*c202B*c15G*c2P*p-0X&a-25V&a+1R Name: Cj Landry : 1925 M89 MedRec: [id number] AcctNum: [id number] Prepared: SatMar 28, 2016 14:37 by Interface Page 10 of 15 pMD [facility] EMERGENCY RECORD SKIN: Skin exam included findings of skin warm, dry, and normal in color, left face is reddened; similar to pressure effect. actinics. LYMPHATIC: Lymphatic exam normal. PSYCHIATRIC: Psychiatric exam included findings of patient oriented to person place and time, Normal affect. EVENTS TRANSFER: Triage to Emergency Main ED -01. (SatMar 28, 2016 10:01 AWAT) Removed from Emergency Main ED -01. (14:05 ER) EKG INTERPRETATION (10:53 SHAN) 12 LEAD EKG INTERPRETATION: 12 lead EKG interpreted by Emergency Department Physician at time of study, rate 80; paced rhythm; no obvious acute event. DOCTOR NOTES TEXT: [facility] note of possible seizure; found unresponsive; hx given was that can normally walk and responsive, but with alzheimers and is dnr. Is anticoagulated. Troponin I positive; but unclear of source. Will add aspirin (inr up already). (10:41 SHAN) Later prison data obtained by rn; patient had been dressed earlier in day; was found asleep (clothed) by rn. Normally would talk, but not today. Daughter is listed as decision maker. Last normal time is unknown. 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 (11:06 SHAN) Daughter is giving permission for transfer, positive troponin and can not rule out onset unknown possible non hemorrhagic cva in patient with prior valve replacement. (11:43 SHAN) Chest x-ray with cardiomegaly and some vascular congestion; only slightly worse than prior. (11:55 SHAN) Discussed each anomaly, Dr. Quinn at [facility] accepting. (12:52 SHAN) PATIENT PLAN: The patient requires a transfer and will be transferred. (11:43 SHAN) DATA REVIEWED: Lab data reviewed, Xray data reviewed, Reviewed EKG. (11:06 SHAN) Lab data reviewed, Xray data reviewed, Reviewed EKG. 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 &a-1R&a+25V*p+0X*h5275D*c202B*c15G*c2P*p-0X&a-25V&a+1R Name: Cj Landry : 1925 M89 MedRec: [id number] AcctNum: [id number] Prepared: SatMar 28, 2016 14:37 by Interface Page 11 of 15 pMD [facility] EMERGENCY RECORD DISPOSITION PATIENT: Disposition Type: Transfer, Disposition: Transfer to [facility]. (11:50 SHAN) Disposition: [facility]. (13:02 AWAT) Patient left the department. (14:05 ER) PRESCRIPTION No recorded prescriptions IMAGING NH ADM RECORD: Image captured from scanner. (10:22 JPAR) Page 2 added. Image captured from scanner. (10:22 JPAR) OOH DNR: Image captured from scanner. (10:23 JPAR) NH ORDER SUMMARY: Image captured from scanner. (10:33 JPAR) Page 2 added. Image captured from scanner. (10:33 JPAR) DR ORDERS: Image captured from scanner. (10:36 JPAR) Page 2 added. Image captured from scanner. (10:36 JPAR) Page 3 added. Image captured from scanner. (10:36 JPAR) NH MAR'S: Image captured from scanner. (10:37 JPAR) Page 2 added. Image captured from scanner. (10:37 JPAR) Page 3 added. Image captured from scanner. (10:37 JPAR) Page 4 added. Image captured from scanner. (10:38 JPAR) Page 5 added. Image captured from scanner. (10:38 JPAR) *RUN SHEET -EMS: Image captured from scanner. (10:40 JPAR) *EKG: Image captured from scanner. (10:57 JPAR) FFAX CONFIRMATION OF RECORDS TO S & W: Image captured from scanner. (12:44 AWAT) TPA CHECKLIST: Image captured from scanner. (13:18 ER) STROKE FLOW SHEET: Image captured from scanner. (13:19 ER) *MEMORANDUM OF TRANSFER: Image captured from scanner. (13:22 AWAT) EMS TRANSPORT ORDERS: Image captured from scanner. (13:22 AWAT) CONSENTS: Image captured from scanner. (13:22 AWAT) SBAR: Image captured from scanner. (13:56 ER) *SUPPLY CHARGE SHEET: Image captured from scanner. (13:57 ER) ADMIN DIGITAL SIGNATURE: MD Chaudhari Stanley. (12:53 SHAN) MD Chaudhari Stanley. (14:26 SHAN) RESULTS RADIOLOGY: CT Brain WO Con Observe DT: SatMar 28, 2016 10:00, BR NONCONTRAST CT OF THE BRAIN: INDICATION: Altered mental status with possible stroke. COMPARISON: Prior exam dated 12/29/15. &a-1R&a+25V*p+0X*i0435O*c202B*c15G*c2P*p-0X&a-25V&a+1R Name: Cj Landry : 1925 M89 MedRec: [id number] AcctNum: [id number] Prepared: SatMar 28, 2016 14:37 by Interface Page 12 of 15 pMD [facility] EMERGENCY RECORD FINDINGS: No acute infarct, hemorrhage, or hydrocephalus is present. There is stable encephalomalacia involvi ng the posterior right insular cortex as well as the right temporal lobe. There is diffuse cerebral and cerebellar atrophy. There is mild chronic small-vessel white matter ischemic change. Septum p ellucidum and third ventricle are midline. There is prominent mucosal thickening within the right m axillary sinus which is similar. Mastoid air cells are clear. The skull is intact. IMPRESSION: 1. No acute intracranial abnormality. 2. Stable chronic ischemic change. 3. Stable paranasal sinus disease. POS: [facility] . (12:28 SHAN) LABORATORY: Cardiac Profile w/CKMB & TropI Collection DT: SatMar 28, 2016 10:13, CKMB 1.7 ng/mL, Range (0-6.6), *Troponin I 0.050 - H ng/mL, Range (< 0.028), Reference Range , 0.00 - 0.028 ng/mL Negative 0.029 - 0.29 ng/mL , Indeterminate Greater or Equal to 0.3 ng/mL Strongly suggests SC , . (10:38 SHAN) Comprehensive Metabolic Panel Collection DT: SatMar 28, 2016 10:13, Sodium 142 mmol/L, Range (136-145), Potassium 4.4 mmol/L, Range (3.5-5.1), *Chloride 110 - H mmol/L, Range (98-107), *Carbon Dioxide 16 - L mmol/L, Range (23-31), Anion Gap 20 mmol/L, Range (10-20), BUN (Urea Nitrogen) 19 mg/dL, Range (8.4-25.7), *Creatinine 1.38 - H mg/dL, Range (0.7-1.3), Estimated GFR-MDRD 49 , Reference Range for Estimated GFR: Greater than 90, mL/min/1.73 m2 NOTE: The MDRD equation has not been validated for use, with the elderly (over 70 years of age), women, patients with, serious comorbid condition or persons with extremes of body size, muscle, mass, or nutritional status. , *Glucose 148 - H mg/dL, Range (83-110), Calcium 9.1 mg/dL, Range (7.8-10.44), Bilirubin, Total 0.9 mg/dL, Range (0.2-1.2), Protein, Total 6.3 g/dL, Range (5.8-8.1), NOTE: Plasma values are &a-1R&a+25V*p+0X*d5416V*c202B*c15G*c2P*p-0X&a-25V&a+1R Name: Cj Landry : 1925 M89 MedRec: [id number] AcctNum: [id number] Prepared: SatMar 28, 2016 14:37 by Interface Page 13 of 15 pMD [facility] EMERGENCY RECORD generally 0.3 to 0.5 g/dL higher than serum values, due to the presence of fibrinogen. , Albumin 3.6 g/dL, Range (3.4-4.8), Globulin 2.7 g/dL, Range (2.4-3.5), Alb/Glob Ratio 1.3 g/dL, Range (1.2-2.2), Alkaline Phosphatase 87 U/L, Range (40-150), AST (SGOT) 17 U/L, Range (5-34), ALT (SGPT) 11 U/L, Range (0-55). 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 , *White Blood Cell (WBC) Count 14.0 - H thou/uL, Range (4.8-10.8), *Red Blood Cell (RBC) Count 3.38 - L mill/uL, Range (4.70-6.10), *Hemoglobin 11.2 - L g/dL, Range (14.0-18.0), *Hematocrit 34.2 - L %, Range (42.0-52.0), *Mean Corpuscular Volume 101.0 - H fL, Range (80.0-94.0), *Mean Corpuscular Hemoglobin 33.0 - H pg, Range (27.0-31.0), Mean Corpuscular HGB CONC 32.7 g/dL, Range (32.0-36.0), RBC Distribution Width 13.7 %, Range (11.5-14.5), *Platelet Count 97 - L thou/uL, Range (130-400), 10.3@ FIRST CHECK HISTORY , Mean Platelet Volume 10.3 fL, Range (7.4-10.4), *%Neutrophils 32.1 - L %, Range (42.0-75.0), *%Lymphocytes 63.1 - H %, Range (21.0-51.0), %Monocytes 3.4 %, Range (0.0-10.0), %Eosinophils 0.2 %, Range (0.0-10.0), *%Basophils 1.2 - H %, Range (0.0-1.0), #Neutrophils 4.5 thou/uL, Range (1.40-6.50), *#Lymphocytes 8.9 - H thou/uL, Range (1.20-3.40), #Monocytes 0.5 thou/uL, Range (0.11-0.59), #Eosinphils 0.0 thou/uL, Range (0.0-0.7), #Basophils 0.2 thou/uL, Range (0.0-0.2), *PLT Morphology Comment Appears Decreased - , * L . (: SHAN) PTT Collection DT: SatMar 28, 2016 10:13, See comment below , Anticoagulant? NONE Medical Necessity SUSPECT COAGULOPATHY , PTT 34.9 SEC, Range (22.9-36.1). (: SHAN) Protime with INR Collection DT: SatMar 28, 2016 10:13, See comment below , Anticoagulant? NONE Medical Necessity SUSPECT COAGULOPATHY , *Prothrombin Time 26.1 - H SEC, Range (12.0-14.7), INR-International Normal Ratio 2.4 , ATTENTION: READ CAREFULLY , The, recommended therapeutic ranges for oral anticoagulant treatments are: , &a-1R&a+25V*p+0X*i3719Y*c202B*c15G*c2P*p-0X&a-25V&a+1R Name: Cj Landry : 1925 M89 MedRec: [id number] AcctNum: [id number] Prepared: SatMar 28, 2016 14:37 by Interface Page 14 of 15 pMD [facility] EMERGENCY RECORD , Low Intensity: 1.5 - 2.0 Moderate Intensity: 2.0, - 3.0 High Intensity (1): 2.5 - 3.5 High, Intensity (2): 3.0 - 4.0 CRITICAL: >, 4.0 . (:38 NAIN) Urinalysis with Microscopic Collection DT: SatMar 28, 2016 11:46, Color Yellow , Range (Yellow), Clarity Clear , Range (Clear), Specific [place], Urine 1.025 , Range (1.005-1.030), pH, Urine 5.5 , Range (5.0-9.0), Leukocyte Negative , Range (Negative), Nitrite Negative , Range (Negative), *Protein, Urine (Dipstick) 100 - H mg/dL, Range (Neg-Trace), Glucose, Urine (Dipstick) Negative mg/dL, Range (Negative), Ketone, Urine Negative mg/dL, Range (Negative), Urobilinogen 1.0 mg/dL, Range (0.2-1.0), Bilirubin Negative , Range (Negative), *Blood, Urine Moderate - H , Range (Negative), *RBC/HPF 7-10 - H HPF, Range (0-3). (11:51 SHAN) Lactic Acid Collection DT: SatMar 28, 2016 11:42, Lactic Acid 2.2 mmol/L, Range (0.5-2.2). (12:02 SHAN) Urinalysis with Microscopic Collection DT: SatMar 28, 2016 11:46, Color Yellow , Range (Yellow), Clarity Clear , Range (Clear), Specific [place], Urine 1.025 , Range (1.005-1.030), pH, Urine 5.5 , Range (5.0-9.0), Leukocyte Negative , Range (Negative), Nitrite Negative , Range (Negative), *Protein, Urine (Dipstick) 100 - H mg/dL, Range (Neg-Trace), Glucose, Urine (Dipstick) Negative mg/dL, Range (Negative), Ketone, Urine Negative mg/dL, Range (Negative), Urobilinogen 1.0 mg/dL, Range (0.2-1.0), Bilirubin Negative , Range (Negative), *Blood, Urine Moderate - H , Range (Negative), *RBC/HPF 7-10 - H HPF, Range (0-3), WBC/HPF 0-3 HPF, Range (0-3), *Squamous Epithelial 4-6 - H HPF, Range (0-3), *Bacteria/HPF 1+ - H HPF, Range (None Seen). (12:02 SHAN) Accuchek Collection DT: SatMar 28, 2016 13:31, *Accuchek 131 - H mg/dL, Range (70-110). (13:36 NAIN) Granados: KIN=LYRIC Antonio, Marcelo WILSON=Marie Chew=ALYSON Paulino Julia SHAN=MD Juan, Jamir &a-1R&a+25V*p+0X*n4948R*c202B*c15G*c2P*p-0X&a-25V&a+1R Name: Cj Landry : 1925 M89 MedRec: [id number] AcctNum: [id number] Prepared: SatMar 28, 2016 14:37 by Interface Page 15 of 15 pMD MTDD
== END 2016-03-28 13:54 | disposition short-term general hospital (02) ==
LOC: MADERS 09:59
DX: I63.9 Cerebral infarction, unspecified (principal); R41.82 Altered mental status, unspecified; I51.7 Cardiomegaly; I50.9 Heart failure, unspecified; F03.90 Unspecified dementia, unspecified severity, without behavioral disturbance, psychotic disturbance, mood disturbance, and anxiety; I10 Essential (primary) hypertension; R74.8 Abnormal levels of other serum enzymes; Z95.810 Presence of automatic (implantable) cardiac defibrillator; Z79.01 Long term (current) use of anticoagulants
CPT/HCPCS: 36415; 36416; 51701; 70450; 71010; 80053; 81001; 82553; 83605; 84484; 85025; 85610; 85730; 87040; 87086; 93005; 96365; J0696; J7050

== ENCOUNTER 2016-04-04 17:04 | Outpatient (CLI) | payer MEDICARE, OTHER ==
[2016-04-04 17:24] LABS: Bilirubin Negative (Negative); Blood, Urine Moderate (Negative); Clarity Slightly Cloudy (Clear); Glucose, Urine (Dipstick) Negative (Negative); Leukocyte Negative (Negative); Nitrite Negative (Negative); Protein, Urine (Dipstick) Negative (Neg-Trace); Specific Gravity, Urine 1.015 (1.005-1.030)
[2016-04-04 17:25] LABS: RBC/HPF 0-3 HPF (0-3); Squamous Epithelial 0-3 HPF (0-3); WBC/HPF 0-3 HPF (0-3)
[2016-04-04 17:26] LABS: Bacteria/HPF 1+ HPF (None Seen); Crystals/HPF 1+ AMORPH URATES HPF (Negative)
[2016-04-04 17:48] LABS: Hemoglobin 11.5 g/dL (14.0-18.0); Mean Corpuscular HGB CONC 33.3 g/dL (32.0-36.0); Mean Corpuscular Hemoglobin 32.1 pg (27.0-31.0); Mean Corpuscular Volume 96.4 fL (80.0-94.0); Red Blood Cell (RBC) Count 3.57 mill/uL (4.70-6.10); White Blood Cell (WBC) Count 24.8 thou/uL (4.8-10.8)
[2016-04-04 17:49] LABS: Anisocytosis SLIGHT = 6-15 cells (100X) (0-5/hpf); Lymphocytes 70 % (21-51); MDiff Complete? YES; Manual Diff?? YES; Mean Platelet Volume 8.8 fL (7.4-10.4); Neutrophil 25 % (42-75); Platelet Count 131 thou/uL (130-400); RBC Distribution Width 13.4 % (11.5-14.5); Reactive Lymphocytes 5 % (0-10)
[2016-04-04 17:50] LABS: PLT Morphology Comment Appears Adequate
== END 2016-04-04 17:05 | disposition home or self-care (01) ==
LOC: MADLAB 17:04
PROVIDERS: ATTEND Family Medicine
DX: D64.9 Anemia, unspecified (principal)
CPT/HCPCS: 81001; 85025; 85060; 87086